=== PATIENT | female | born 1975 | race Two or more races ===

== ENCOUNTER 2025-07-18 19:00 | Emergency (ER) | payer OTHER ==
[~2025-07-18] VITALS: Ht 170.2 cm; Wt 80.7 kg
[2025-07-18] MEDS ORDERED: NORFLEX100MG PO (21:28)
[2025-07-18] MEDS ORDERED: DICLOFENAC SODI75 MG PO (21:28)
[2025-07-18] MEDS ORDERED: ORPHENADRINE CITRATE 30 MG/ML AMPUL IM ONE (21:30)
[2025-07-18] MEDS ORDERED: DEXAMETHASONE SODIUM PHOSPHATE 4 MG/ML VIAL IM ONE (21:30)
[2025-07-18] MEDS ORDERED: KETOROLAC TROMETHAMINE 60 MG VIAL IM ONE ×2 (21:30)
[2025-07-18] MEDS ORDERED: ORPHENADRINE CITRATE 30 MG/ML AMPUL ONE (21:30)
[2025-07-18] MEDS ORDERED: DEXAMETHASONE SODIUM PHOSPHATE 4 MG/ML VIAL ONE (21:31)
== END 2025-07-18 21:48 | disposition home or self-care (01) ==
LOC: ER 19:00
DX: M62.830 Muscle spasm of back (principal); M25.512 Pain in left shoulder; M54.9 Dorsalgia, unspecified